=== PATIENT | female | born 1945 | race Caucasian/White ===

== ENCOUNTER 2016-08-13 16:58 | Emergency (ER) | payer BC, OTHER ==
[~2016-08-13] VITALS: Ht 167.6 cm; Wt 75.7 kg
[~2016-08-13 16:58] MED LIST: ACTOPLUS MET1 TABLE1 PO; ALEVE220 MG PO; AMLODIPINE BESY10 MG PO; AMLODIPINE-BEN1 EAC3 PO; ATORVASTATIN CA10 MG PO; CEFDINIR300 MG PO; CLONIDINE HCL0.1 MG PO; IMDUR60 MG PO; LIDODERM 5% P1 PATCH TD; LISINOPRIL-HCT1 EAC3 PO; LISINOPRIL20 MG PO; LO-DOSE ASPIRIN81 M1 PO; METFORMIN HCL500 M1 PO; METFORMIN HCL500 MG PO; MOTRIN600 MG PO; NORCO 5/3251 TABLET PO; PERCOCET 5/31 TABLET PO; VALIUM5 MG PO; ZOFRAN ODT4 MG PO
[2016-08-13] MEDS ORDERED: PREDNISONE20 MG PO (18:00)
[2016-08-13] MEDS ORDERED: VENTOLIN HFA18 GM IH (18:00)
[2016-08-13 18:08] VITALS: BP 182/78
== END 2016-08-13 18:10 | disposition home or self-care (01) ==
LOC: EME 16:58
DX: J40 Bronchitis, not specified as acute or chronic (principal); I10 Essential (primary) hypertension
CPT/HCPCS: 71020; 99281; 99283

== ENCOUNTER 2017-01-23 03:10 | Emergency (ER) | payer BC, OTHER ==
[~2017-01-23] VITALS: Ht 167.6 cm; Wt 83.7 kg
[~2017-01-23 03:10] MED LIST changes: +PREDNISONE20 MG PO; +VENTOLIN HFA18 GM IH
[2017-01-23 03:35] LABS: HEMATOCRIT 39.1 % (36.0-46.0); MCH 30.9 PG (29.0-34.0); MCV 93.8 FL (83-99); MEAN PLAT.VOLUME 10.9 uM^3 (9.5-12.4); PLATELET COUNT 214 K/uL (156-360); RBC DIS.WIDTH-CV 12.3 % (11.8-14.6); RBC DIS.WIDTH-SD 42.7 % (39-53); RED BLOOD COUNT 4.17 M/uL (3.80-5.20); WHITE BLOOD COUNT 5.9 K/uL (4.1-10.2)
[2017-01-23 03:43] LABS: CHLORIDE 103 mEq/L (99-109); POTASSIUM 4.4 mEq/L (3.7-5.4); SODIUM 140 mEq/L (136-147)
[2017-01-23 03:45] LABS: GLUCOSE 231 mg/dL (70-99)
[2017-01-23 03:47] LABS: ANION GAP 11 MEQ/L (2-14); TOTAL BILIRUBIN 0.3 mg/dL (0.0-1.0)
[2017-01-23 03:49] LABS: ALKALINE PHOSPHATASE 119 IU/L (3-129); GFR ESTIMATE (CALCULATED) 58 mL/min/
[2017-01-23 03:50] LABS: UREA NITROGEN (BUN) 33 mg/dL (9-23)
[2017-01-23 04:00] LABS: ADD MIUA? NO; BILIRUBIN NEGATIVE; BLOOD NEGATIVE; COLOR STRAW ((YELLOW)); GLUCOSE (STRIP) 50; KETONES NEGATIVE; LEUKOCYTES NEGATIVE; NITRITE NEGATIVE; PROTEIN (STRIP) NEGATIVE; SPECIFIC GRAVITY 1.009 (1.000-1.030); UCUL ADDED? NO; UROBILINOGEN 0.2 MG/DL (0.2-1.0)
[2017-01-23] MEDS ORDERED: ULTRAM50 MG PO (04:13)
[2017-01-23 04:31] VITALS: BP 152/97
== END 2017-01-23 04:32 | disposition home or self-care (01) ==
LOC: EME 03:10
DX: M54.5 Low back pain (principal); G89.29 Other chronic pain; E11.9 Type 2 diabetes mellitus without complications; Z87.440 Personal history of urinary (tract) infections; Z79.82 Long term (current) use of aspirin
CPT/HCPCS: 74176; 80053; 81003; 85027; 99281; 99285; J1885; J3010; J7030